=== PATIENT | female | born 1955 | race American Indian/Alaskan Native ===

== ENCOUNTER 2016-05-12 20:12 | Emergency (ER) | payer BC ==
[2016-05-12 21:52] LABS: Anion Gap 18 mmol/L; BUN/Creatinine Ratio 16.25; Blood Urea Nitrogen 13 mg/dL (7-17); Carbon Dioxide 27 mmol/L (22-30); Chloride 104.5 mmol/L (98-107); Glucose 126 mg/dL (65-100); Potassium 3.2 mmol/L (3.6-5.0); Sodium 146 mmol/L (137-145)
[2016-05-12 22:03] LABS: Basophils % (Auto) 0.9 % (0.0-1.8); Hematocrit 33.3 % (30.3-42.9); Mean Corpuscular HGB Conc 33 % (30-34); Mean Corpuscular Hemoglobin 30 pg (28-32); Mean Corpuscular Volume 91 fl (79-97); Platelet Count 273 K/mm3 (140-440); Red Blood Count 3.67 M/mm3 (3.65-5.03); Red Cell Distribution Width 14.8 % (13.2-15.2); White Blood Count 8.8 K/mm3 (4.5-11.0)
[2016-05-13 00:15] LABS: Urine Drugs of Abuse Note Disclamer
[2016-05-13 00:34] LABS: Bacteria,Urine 1+ /HPF (Negative); Bilirubin,Urine NEG (Negative); Blood,Urine MOD (Negative); Ketones,Urine NEG (Negative); Leukocyte Esterase,Urine MOD (Negative); Mucus,Urine FEW /HPF; Nitrite,Urine NEG (Negative); Protein,Urine <15 mg/dL mg/dL (Negative); Urobilinogen,Urine < 2.0 mg/dL (<2.0)
[2016-05-13] MEDS ORDERED: MACROBID FEEDTUBE ONE (01:08)
[2016-05-13] MEDS ORDERED: POTASSIUM CHLORIDE FEEDTUBE ONE (01:08)
[2016-05-13] MEDS ORDERED: ZOFRAN ODT PO ONE (01:42)
--- NOTE | 2016-05-13 02:55 | Emergency Department Report ---
ED Altered Mental Status HPI - General Chief Complaint: Overdose Stated Complaint: OVERDOSE Time Seen by Provider: 05/13/16 00:49 Source: patient Mode of arrival: Stretcher Limitations: No Limitations - History of Present Illness Initial Comments: 60-year-old female with a past medical history chronic back pain, gastroparesis with PEG placement, and hypertension presents to the hospital altered mental status. Patient found unresponsive by family members. GCS as per 5 department was 3. Patient received 0.5 Narcan nasally and patient became fully alert with GCS of 15. Family states the patient is known to suckl or her fentanyl Duragesic. Patient denies this. Patient states she placed a new fentanyl patch 75 g patch today but otherwise states she is taking the medication list and should be taken. She denies sucking on Duragesic patches states that when they fall off after placing on her backside she places them on her neck next. Patient states she feels fine and denies any complaints. She states she typically takes liquid mostly water by mouth but otherwise uses her PEG tube for nutrition due to chronic gastroparesis. - Related Data Home Medications Medication Instructions Recorded Confirmed Last Taken Lisinopril [Zestril TAB] 20 mg PO QDAY 04/20/15 05/12/16 1 Day Ago 40 Pantoprazole [Protonix TAB] 40 mg PO QDAY 10/06/15 05/12/16 1 Day Ago 40 Previous Rx's Medication Instructions Recorded Last Taken Type Ondansetron [Zofran TAB] 4 mg PO Q6H PRN #30 tablet 10/12/15 1 Day Ago Rx 4 Naloxone HCl [Narcan] 4 mg NS Q1HR PRN #5 spray 01/23/16 1 Day Ago Rx 4 Potassium Chloride [K-Dur] 20 meq PO BID #10 tab 01/23/16 1 Day Ago Rx 20 Nitrofurantoin [place]/M-Cryst 100 mg FEEDTUBE Q12HR #10 capsule 05/13/16 Unknown Rx [Macrobid CAP] Ondansetron [Zofran Odt] 4 mg PO Q8HR PRN #20 tab.rapdis 05/13/16 Unknown Rx Potassium Chloride [Klor-Con] 20 meq FEEDTUBE DAILY #3 packet 05/13/16 Unknown Rx Allergies Allergy/AdvReac Type Severity Reaction Status Date / Time codeine Allergy Rash Verified 11/08/12 13:38 hydromorphone HCl Allergy Rash Verified 11/08/12 13:38 [From Dilaudid] metoclopramide HCl Allergy Rash Verified 11/08/12 13:38 [From Reglan] prochlorperazine edisylate Allergy Rash Verified 11/08/12 13:38 [From Compazine] prochlorperazine maleate Allergy Rash Verified 11/08/12 13:38 [From Compazine] ED Review of Systems ROS: Stated complaint: OVERDOSE Other details as noted in HPI Comment: All other systems reviewed and negative Other: Constitutional: No fevers chills Eyes: No eye pain visual changes ENT: No ear pain or throat pain Neck: Denies pain Respiratory: Denies cough wheezing shortness of breath Cardiovascular: Denies chest pain, palpitations, syncope GI: Denies abdominal pain, nausea, vomiting, diarrhea : Denies dysuria Musculoskeletal: Chronic back pain Skin: Denies rash, lesions, erythema Neurologic: Denies headache, numbness, weakness Psychiatric: Denies suicidal ideation, hallucinations ED Past Medical Hx - Past Medical History Previous Medical History?: Yes Hx Hypertension: Yes Hx Heart Attack/AMI: No Hx Congestive Heart Failure: No Hx Diabetes: No Hx Deep Vein Thrombosis: (?) Hx Liver Disease: No Hx Renal Disease: No Hx Sickle Cell Disease: No Hx Asthma: No Hx COPD: No Hx HIV: No Additional medical history: Back Pain, gastroparesis - Surgical History Past Surgical History?: Yes Hx Open Heart Surgery: No Hx Pacemaker: No Hx Internal Defibrillator: No Hx Cholecystectomy: Yes Hx Appendectomy: Yes Hx Breast Surgery: No Additional Surgical History: L5, S1 surgery - Social History Smoking Status: Never Smoker - Medications Home Medications: Home Medications Medication Instructions Recorded Confirmed Last Taken Type Lisinopril [Zestril TAB] 20 mg PO QDAY 04/20/15 05/12/16 1 Day Ago History 40 Pantoprazole [Protonix TAB] 40 mg PO QDAY 10/06/15 05/12/16 1 Day Ago History 40 Ondansetron [Zofran TAB] 4 mg PO Q6H PRN #30 tablet 10/12/15 05/12/16 1 Day Ago Rx 4 Naloxone HCl [Narcan] 4 mg NS Q1HR PRN #5 spray 01/23/16 05/12/16 1 Day Ago Rx 4 Potassium Chloride [K-Dur] 20 meq PO BID #10 tab 01/23/16 05/12/16 1 Day Ago Rx 20 Nitrofurantoin [place]/M-Cryst 100 mg FEEDTUBE Q12HR #10 capsule 05/13/16 Unknown Rx [Macrobid CAP] Ondansetron [Zofran Odt] 4 mg PO Q8HR PRN #20 tab.rapdis 05/13/16 Unknown Rx Potassium Chloride [Klor-Con] 20 meq FEEDTUBE DAILY #3 packet 05/13/16 Unknown Rx ED Physical Exam - General Limitations: No Limitations - Other Other exam information: General: No limitations, patient is alert in no acute distress Head exam: Atraumatic, normocephalic Eyes exam: Normal appearance, pupils equal reactive to light ENT: Moist mucous membrane, normal oropharynx Neck exam: Normal inspection, full range of motion Respiratory exam: Clear to auscultation bilateral, no wheezes, rales, crackles Cardiovascular: Normal rate and rhythm, normal heart sounds Abdomen: Soft, nondistended, and nontender, with normal bowel sounds, no rebound, or guarding. Positive PEg Extremity: Full range of motion normal inspection no deformity Back: Normal Inspection, full range of motion, no tenderness Neurologic: Alert, oriented x3, cranial nerves intact, no motor or sensory deficit Psychiatric: normal affect, normal mood Skin: Warm, dry, intact ED Course Vital Signs 05/12/16 05/12/16 20:42 21:15 Temperature 98.4 F Pulse Rate 122 H Respiratory 18 16 Rate Blood Pressure 118/72 O2 Sat by Pulse 99 99 Oximetry - Reevaluation(s) Reevaluation #1: 05/13/16 02:55 Repeat heart rate 95-100. Patient treated with Macrobid, Zofran, and potassium. She states she has a history of hypokalemia - Lab Data Result diagrams: 05/12/16 21:09 05/12/16 21:09 Lab Results 05/12/16 05/12/16 05/12/16 Range/Units 21:09 21:09 21:09 WBC (4.5-11.0) K/mm3 RBC (3.65-5.03) M/mm3 Hgb (10.1-14.3) gm/dl Hct (30.3-42.9) % MCV (79-97) fl MCH (28-32) pg MCHC (30-34) % RDW (13.2-15.2) % Plt Count (140-440) K/mm3 Lymph % (Auto) (13.4-35.0) % [place] % (Auto) (0.0-7.3) % Eos % (Auto) (0.0-4.3) % Baso % (Auto) (0.0-1.8) % Lymph # (1.2-5.4) K/mm3 [place] # (0.0-0.8) K/mm3 Eos # (0.0-0.4) K/mm3 Baso # (0.0-0.1) K/mm3 Seg Neutrophils % (40.0-70.0) % Seg Neutrophils # (1.8-7.7) K/mm3 Sodium 146 H (137-145) mmol/L Potassium 3.2 L (3.6-5.0) mmol/L Chloride 104.5 (98-107) mmol/L Carbon Dioxide 27 (22-30) mmol/L Anion Gap 18 mmol/L BUN 13 (7-17) mg/dL Creatinine 0.8 (0.7-1.2) mg/dL Estimated GFR > 60 ml/min BUN/Creatinine Ratio 16.25 % Glucose 126 H (65-100) mg/dL Calcium 9.0 (8.4-10.2) mg/dL Urine Color (Yellow) Urine Turbidity (Clear) Urine pH (5.0-7.0) Ur Specific [place] (1.003-1.030) Urine Protein (Negative) mg/dL Urine Glucose (UA) (Negative) mg/dL Urine Ketones (Negative) mg/dL Urine Blood (Negative) Urine Nitrite (Negative) Urine Bilirubin (Negative) Urine Urobilinogen (<2.0) mg/dL Ur Leukocyte Esterase (Negative) Urine WBC (Auto) (0.0-6.0) /HPF Urine RBC (Auto) (0.0-6.0) /HPF U Epithel Cells (Auto) (0-13.0) /HPF Urine Bacteria (Auto) (Negative) /HPF Hyaline Casts /LPF Urine Mucus /HPF Salicylates < 0.3 L (2.8-20.0) mg/dL Urine Opiates Screen Urine Methadone Screen Acetaminophen < 15.0 (10.0-30.0) ug/mL Ur Barbiturates Screen Ur Phencyclidine Scrn Ur Amphetamines Screen U Benzodiazepines Scrn Urine Cocaine Screen U Marijuana (THC) Screen Drugs of Abuse Note Plasma/Serum Alcohol (0-0.07) gm% 05/12/16 05/12/16 05/12/16 Range/Units 21:09 21:09 23:22 WBC 8.8 (4.5-11.0) K/mm3 RBC 3.67 (3.65-5.03) M/mm3 Hgb 11.0 (10.1-14.3) gm/dl Hct 33.3 (30.3-42.9) % MCV 91 (79-97) fl MCH 30 (28-32) pg MCHC 33 (30-34) % RDW 14.8 (13.2-15.2) % Plt Count 273 (140-440) K/mm3 Lymph % (Auto) 24.2 (13.4-35.0) % [place] % (Auto) 6.4 (0.0-7.3) % Eos % (Auto) 1.0 (0.0-4.3) % Baso % (Auto) 0.9 (0.0-1.8) % Lymph # 2.1 (1.2-5.4) K/mm3 [place] # 0.6 (0.0-0.8) K/mm3 Eos # 0.1 (0.0-0.4) K/mm3 Baso # 0.1 (0.0-0.1) K/mm3 Seg Neutrophils % 67.5 (40.0-70.0) % Seg Neutrophils # 5.9 (1.8-7.7) K/mm3 Sodium (137-145) mmol/L Potassium (3.6-5.0) mmol/L Chloride (98-107) mmol/L Carbon Dioxide (22-30) mmol/L Anion Gap mmol/L BUN (7-17) mg/dL Creatinine (0.7-1.2) mg/dL Estimated GFR ml/min BUN/Creatinine Ratio % Glucose (65-100) mg/dL Calcium (8.4-10.2) mg/dL Urine Color Yellow (Yellow) Urine Turbidity Clear (Clear) Urine pH 6.0 (5.0-7.0) Ur Specific [place] 1.011 (1.003-1.030) Urine Protein <15 mg/dl (Negative) mg/dL Urine Glucose (UA) Neg (Negative) mg/dL Urine Ketones Neg (Negative) mg/dL Urine Blood Mod (Negative) Urine Nitrite Neg (Negative) Urine Bilirubin Neg (Negative) Urine Urobilinogen < 2.0 (<2.0) mg/dL Ur Leukocyte Esterase Mod (Negative) Urine WBC (Auto) 9.0 H (0.0-6.0) /HPF Urine RBC (Auto) 4.0 (0.0-6.0) /HPF U Epithel Cells (Auto) 1.0 (0-13.0) /HPF Urine Bacteria (Auto) 1+ (Negative) /HPF Hyaline Casts 3 /LPF Urine Mucus Few /HPF Salicylates (2.8-20.0) mg/dL Urine Opiates Screen Urine Methadone Screen Acetaminophen (10.0-30.0) ug/mL Ur Barbiturates Screen Ur Phencyclidine Scrn Ur Amphetamines Screen U Benzodiazepines Scrn Urine Cocaine Screen U Marijuana (THC) Screen Drugs of Abuse Note Plasma/Serum Alcohol < 0.01 (0-0.07) gm% 05/12/16 Range/Units 23:22 WBC (4.5-11.0) K/mm3 RBC (3.65-5.03) M/mm3 Hgb (10.1-14.3) gm/dl Hct (30.3-42.9) % MCV (79-97) fl MCH (28-32) pg MCHC (30-34) % RDW (13.2-15.2) % Plt Count (140-440) K/mm3 Lymph % (Auto) (13.4-35.0) % [place] % (Auto) (0.0-7.3) % Eos % (Auto) (0.0-4.3) % Baso % (Auto) (0.0-1.8) % Lymph # (1.2-5.4) K/mm3 [place] # (0.0-0.8) K/mm3 Eos # (0.0-0.4) K/mm3 Baso # (0.0-0.1) K/mm3 Seg Neutrophils % (40.0-70.0) % Seg Neutrophils # (1.8-7.7) K/mm3 Sodium (137-145) mmol/L Potassium (3.6-5.0) mmol/L Chloride (98-107) mmol/L Carbon Dioxide (22-30) mmol/L Anion Gap mmol/L BUN (7-17) mg/dL Creatinine (0.7-1.2) mg/dL Estimated GFR ml/min BUN/Creatinine Ratio % Glucose (65-100) mg/dL Calcium (8.4-10.2) mg/dL Urine Color (Yellow) Urine Turbidity (Clear) Urine pH (5.0-7.0) Ur Specific [place] (1.003-1.030) Urine Protein (Negative) mg/dL Urine Glucose (UA) (Negative) mg/dL Urine Ketones (Negative) mg/dL Urine Blood (Negative) Urine Nitrite (Negative) Urine Bilirubin (Negative) Urine Urobilinogen (<2.0) mg/dL Ur Leukocyte Esterase (Negative) Urine WBC (Auto) (0.0-6.0) /HPF Urine RBC (Auto) (0.0-6.0) /HPF U Epithel Cells (Auto) (0-13.0) /HPF Urine Bacteria (Auto) (Negative) /HPF Hyaline Casts /LPF Urine Mucus /HPF Salicylates (2.8-20.0) mg/dL Urine Opiates Screen Presumptive negative Urine Methadone Screen Presumptive negative Acetaminophen (10.0-30.0) ug/mL Ur Barbiturates Screen Presumptive negative Ur Phencyclidine Scrn Presumptive negative Ur Amphetamines Screen Presumptive negative U Benzodiazepines Scrn Presumptive negative Urine Cocaine Screen Presumptive negative U Marijuana (THC) Screen Presumptive negative Drugs of Abuse Note Disclamer Plasma/Serum Alcohol (0-0.07) gm% - Medical Decision Making Symptoms thought to be secondary to narcotic drug overdose given response to Narcan. After initial dose of Narcan patient remained alert and at baseline for greater than 6 hours in the ED. Labs here reveal possible UTI. Patient denies dysuria. She will be covered with Macrobid and discharged home. - Differential Diagnosis drug overdose, encephalopathy, TIA Critical Care Time: No Critical care attestation.: If time is entered above; I have spent that time in minutes in the direct care of this critically ill patient, excluding procedure time. ED Disposition Clinical Impression: Narcotic overdose, Hypokalemia, UTI (urinary tract infection) Disposition: DISCHARGED TO HOME OR SELFCARE Is pt being admited?: No Condition: Stable Instructions: Narcotic Pain Management (ED), Hypokalemia (ED), Urinary Tract Infection in Women (ED) Additional Instructions: Take the medication as prescribed. Only use your fentanyl patch as prescribed. Return if symptoms worsen. Follow up with your doctor Prescriptions: Nitrofurantoin [place]/M-Cryst [Macrobid CAP] 100 mg FEEDTUBE Q12HR #10 capsule Ondansetron [Zofran Odt] 4 mg PO Q8HR PRN #20 tab.rapdis PRN Reason: Nausea And Vomiting Potassium Chloride [Klor-Con] 20 meq FEEDTUBE DAILY #3 packet Referrals: PRIMARY CARE, [Primary Care Provider] - 3-5 Days Time of Disposition: 03:00
[2016-05-13 03:46] VITALS: BP 124/86
== END 2016-05-13 03:46 | disposition home or self-care (01) ==
LOC: ED 20:12
DX: T40.691A Poisoning by other narcotics, accidental (unintentional), initial encounter (principal); Y92.9 Unspecified place or not applicable; E87.6 Hypokalemia; N39.0 Urinary tract infection, site not specified; I10 Essential (primary) hypertension
CPT/HCPCS: 36415; 80048; 80307; 81001; 85025; 99283; G0480; 80320; Q0162

== ENCOUNTER 2019-03-01 06:29 | Emergency (ER) | payer SELFPAY ==
[2019-03-01 07:25] LABS: Basophils # (Auto) 0.1 K/mm3 (0.0-0.1); Eosinophils # (Auto) 0.1 K/mm3 (0.0-0.4); Eosinophils % (Auto) 1.2 % (0.0-4.3); Hematocrit 27.1 % (30.3-42.9); Lymphocytes # (Auto) 1.4 K/mm3 (1.2-5.4); Lymphocytes % (Auto) 18.6 % (13.4-35.0); Mean Corpuscular HGB Conc 33 % (30-34); Mean Corpuscular Volume 88 fl (79-97); Monocytes # (Auto) 0.8 K/mm3 (0.0-0.8); Platelet Count 445 K/mm3 (140-440); Red Blood Count 3.07 M/mm3 (3.65-5.03); Red Cell Distribution Width 18.3 % (13.2-15.2)
[2019-03-01 07:49] LABS: BUN/Creatinine Ratio 43; Blood Urea Nitrogen 26 mg/dL (7-17); Hemolysis Index 3
--- NOTE | 2019-03-01 08:34 | Emergency Department Report ---
ED General Adult HPI - General Chief complaint: Abdominal Pain Stated complaint: BLEEDING FROM PORT Time Seen by Provider: 03/01/19 08:01 Source: patient Mode of arrival: Ambulatory Limitations: No Limitations - History of Present Illness Initial comments: 63 yo female recent 1mo hospitalization (discharged 5 days ago) at [facility] coming to the ed for bleeding from chung's cath. 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 Chung's cath placed for tpn feeds since pt's port left chest wall was nonfunctioning. Today her daugher was helping her with feeds for first time. She injected Normal saline and heparin then pulled back. Blood was coming from port and pt and daughter were unable to get it stop. THey state they tried to clamp the line but it did not work. She presents with cath unclamped and clotted blood at the distal end. She has a bag where she collected about 100ml of blood pt c/o post op abd pain which has unchanged since surgery pt is not taking anticoagulants other than heparin with line flushes. - Related Data Home Medications Medication Instructions Recorded Confirmed Last Taken Pantoprazole [Protonix TAB] 40 mg PO QDAY 10/06/15 07/02/17 07/01/17 amLODIPine 5 mg PO DAILY 07/02/17 07/02/17 07/01/17 lisinopriL [Zestril TAB] 40 mg PO QDAY 07/02/17 07/02/17 07/01/17 Previous Rx's Medication Instructions Recorded Last Taken Type Potassium Chloride [K-Dur] 20 meq PO BID #10 tab 01/23/16 07/01/17 Rx Aspirin [Aspirin BABY CHEW TAB] 81 mg PO QDAY #30 tab.chew 07/16/17 Unknown Rx AtorvaSTATin [Lipitor] 40 mg PO QHS #30 tablet 07/16/17 Unknown Rx Warfarin [Coumadin] 7.5 mg PO QHS #30 tablet 07/16/17 Unknown Rx Allergies Allergy/AdvReac Type Severity Reaction Status Date / Time codeine Allergy Rash Verified 07/02/17 01:58 hydromorphone HCl Allergy Rash Verified 07/02/17 01:58 [From Dilaudid] metoclopramide HCl Allergy Rash Verified 07/02/17 01:58 [From Reglan] prochlorperazine edisylate Allergy Rash Verified 07/02/17 01:58 [From Compazine] prochlorperazine maleate Allergy Rash Verified 07/02/17 01:58 [From Compazine] ED Review of Systems ROS: Stated complaint: BLEEDING FROM PORT Other details as noted in HPI Comment: All other systems reviewed and negative ED Past Medical Hx - Past Medical History Previous Medical History?: Yes Hx Hypertension: Yes Hx Heart Attack/AMI: No Hx Congestive Heart Failure: No Hx Diabetes: No Hx Deep Vein Thrombosis: (?) Hx Liver Disease: No Hx Renal Disease: No Hx Sickle Cell Disease: No Hx Asthma: No Hx COPD: No Hx HIV: No Additional medical history: Back Pain, gastroparesis - Surgical History Past Surgical History?: Yes Hx Open Heart Surgery: No Hx Pacemaker: No Hx Internal Defibrillator: No Hx Cholecystectomy: Yes Hx Appendectomy: Yes Hx Breast Surgery: No Additional Surgical History: L5, S1 surgery. 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 - Social History Smoking Status: Never Smoker Substance Use Type: None - Medications Home Medications: Home Medications Medication Instructions Recorded Confirmed Last Taken Type Pantoprazole [Protonix TAB] 40 mg PO QDAY 10/06/15 07/02/17 07/01/17 History Potassium Chloride [K-Dur] 20 meq PO BID #10 tab 01/23/16 07/02/17 07/01/17 Rx amLODIPine 5 mg PO DAILY 07/02/17 07/02/17 07/01/17 History lisinopriL [Zestril TAB] 40 mg PO QDAY 07/02/17 07/02/17 07/01/17 History Aspirin [Aspirin BABY CHEW TAB] 81 mg PO QDAY #30 tab.chew 07/16/17 Unknown Rx AtorvaSTATin [Lipitor] 40 mg PO QHS #30 tablet 07/16/17 Unknown Rx Warfarin [Coumadin] 7.5 mg PO QHS #30 tablet 07/16/17 Unknown Rx ED Physical Exam - General Limitations: No Limitations General appearance: alert - Head Head exam: Present: atraumatic - Eye Eye exam: Present: normal appearance - ENT ENT exam: Present: normal exam - Neck Neck exam: Present: normal inspection - Respiratory Respiratory exam: Present: normal lung sounds bilaterally - Cardiovascular Cardiovascular Exam: Present: regular rate, normal rhythm, other (rigth chest chung's port/cath, clotted blood at distal end, no active bleeding, clamped in ed, left chest wall port) - GI/Abdominal GI/Abdominal exam: Present: soft, tenderness, other (midline vertical scar with ana. mild generalized tenderness). Absent: distended - Extremities Exam Extremities exam: Present: normal inspection - Back Exam Back exam: Present: normal inspection - Neurological Exam Neurological exam: Present: alert, altered, oriented X3 - Psychiatric Psychiatric exam: Present: normal affect - Skin Skin exam: Present: warm ED Course Vital Signs 03/01/19 06:46 Temperature 98.1 F Pulse Rate 95 H Respiratory 18 Rate Blood Pressure 105/71 O2 Sat by Pulse 96 Oximetry - Reevaluation(s) Reevaluation #1: 03/01/19 08:37 request for picc team to evaluate line. 03/01/19 09:53 Picc nurse came to evaluate line. pt has a hickmans cath with a cap but is missing a reflux valve. Pt states visiting nurse came to home yesterday and told her that she is missing the reflux valve on her hickmans cath so an order was placed. A reflux valve was placed. Line flushes without issues. ED Medical Decision Making - Lab Data Result diagrams: 03/01/19 06:50 03/01/19 06:50 Lab Results 03/01/19 03/01/19 03/01/19 Range/Units 06:50 06:50 08:58 WBC 7.6 (4.5-11.0) K/mm3 RBC 3.07 L (3.65-5.03) M/mm3 Hgb 9.0 L (10.1-14.3) gm/dl Hct 27.1 L (30.3-42.9) % MCV 88 (79-97) fl MCH 29 (28-32) pg MCHC 33 (30-34) % RDW 18.3 H (13.2-15.2) % Plt Count 445 H (140-440) K/mm3 Lymph % (Auto) 18.6 (13.4-35.0) % [place] % (Auto) 10.0 H (0.0-7.3) % Eos % (Auto) 1.2 (0.0-4.3) % Baso % (Auto) 1.0 (0.0-1.8) % Lymph # 1.4 (1.2-5.4) K/mm3 [place] # 0.8 (0.0-0.8) K/mm3 Eos # 0.1 (0.0-0.4) K/mm3 Baso # 0.1 (0.0-0.1) K/mm3 Seg Neutrophils % 69.2 (40.0-70.0) % Seg Neutrophils # 5.3 (1.8-7.7) K/mm3 PT 14.3 (12.2-14.9) Sec. INR 1.10 (0.87-1.13) APTT 34.0 (24.2-36.6) Sec. Sodium 141 (137-145) mmol/L Potassium 5.0 (3.6-5.0) mmol/L Chloride 109.8 H (98-107) mmol/L Carbon Dioxide 17 L (22-30) mmol/L Anion Gap 19 mmol/L BUN 26 H (7-17) mg/dL Creatinine 0.6 L (0.7-1.2) mg/dL Estimated GFR > 60 ml/min BUN/Creatinine Ratio 43 % Glucose 99 (65-100) mg/dL Calcium 9.0 (8.4-10.2) mg/dL - Medical Decision Making pt with bleeding for Chung's catheter after flushing due to lack of reflux valve bleeding stopped in ed reflux valve placed anemia noted, pt states she received 2 units of blood last week, copy of labs will be provided for outpt f/u pt will be d/darnell home Critical Care Time: No Critical care attestation.: If time is entered above; I have spent that time in minutes in the direct care of this critically ill patient, excluding procedure time. ED Disposition Clinical Impression: Chung catheter dysfunction, Anemia Disposition: TO HOME OR SELFCARE Is pt being admited?: No Does the pt Need Aspirin: No Condition: Stable Instructions: Tunneled Central Lines Adult (ED), Anemia (ED) Additional Instructions: Follow up with you doctor or with the doctor provided. Return if symptoms worsen as indicated by your discharge instructions. Time of Disposition: 10:02
[2019-03-01 09:50] LABS: INR 1.1 (0.87-1.13)
[2019-03-01 10:40] VITALS: BP 125/87
== END 2019-03-01 10:41 | disposition home or self-care (01) ==
LOC: ED 06:29
DX: D64.9 Anemia, unspecified (principal); T80.219A Unspecified infection due to central venous catheter, initial encounter; I10 Essential (primary) hypertension; Z90.49 Acquired absence of other specified parts of digestive tract; Z98.890 Other specified postprocedural states; Z79.899 Other long term (current) drug therapy; Z88.4 Allergy status to anesthetic agent; Z88.8 Allergy status to other drugs, medicaments and biological substances
CPT/HCPCS: 36415; 80048; 85025; 85610; 85730